=== PATIENT | male | born 1945 | race Caucasian/White ===

== ENCOUNTER 2017-01-22 00:04 | Inpatient (IN) | payer MEDICARE ==
[~2017-01-22] VITALS: Ht 172.7 cm; Wt 88.7 kg
[~2017-01-22 00:04] MED LIST: ALPR2TAB2 PO; ASPI-496 PO; AZIT250T PO; CEFD300C2 PO; FLUT1DIS IH; LORA10CA PO; PANT40TA5 PO; SIMV20TA3 PO
[2017-01-22] MEDS ORDERED: MORPHINE SULFATE 4 MG/ML, 1ML IVPush PRN (00:30)
[2017-01-22] MEDS ORDERED: SODIUM CHLORIDE 0.9% 1,000ML IVBOLUS ONE (00:30)
[2017-01-22] MEDS ORDERED: ONDANSETRON 2MG/ML, 2ML IVPush ONE (00:30)
[2017-01-22] MEDS ORDERED: SODIUM CHLORIDE FLUSH 10ML SYR IVF ONE (00:30)
[2017-01-22 00:48] LABS: HEMOGLOBIN 9.6 g/dL (13.7-18.0)
[2017-01-22 01:03] LABS: BLOOD UREA NITROGEN 30 mg/dL (7-18)
[2017-01-22 01:06] LABS: ASPARTATE AMINO TRANSFERASE 23 U/L (15-37)
[2017-01-22] MEDS ORDERED: OMNIPAQUE 350 MG/ML, 150 ML BOTTLE ONE (01:14)
[2017-01-22] MEDS ORDERED: MORPHINE SULFATE 4 MG/ML, 1ML ONE (01:28)
[2017-01-22] MEDS ORDERED: ONDANSETRON 2MG/ML, 2ML ONE (01:28)
[2017-01-22] MEDS ORDERED: SODIUM CHLORIDE 0.9% 1,000 ML IV ONE (01:35)
[2017-01-22] MEDS ORDERED: PROMETHAZINE 25 MG/ML, 1ML IM ONE (02:00)
[2017-01-22] MEDS ORDERED: OMNIPAQUE 350 MG/ML, 100ML BOTTLE ONE (02:16)
[2017-01-22] MEDS ORDERED: ONDANSETRON 2MG/ML, 2ML IVP PRN (02:30)
[2017-01-22] MEDS ORDERED: PROMETHAZINE 25 MG/ML, 1ML IM PRN (02:30)
[2017-01-22] MEDS: HYDROmorphone 1 MG/ML, 1ML IV PRN ×4 (03:35→21:36)
[2017-01-22] MEDS: ENOXAPARIN 40 MG/0.4 ML SQ SCH (04:14)
[2017-01-22] MEDS: D5%-0.45NACL+KCL 20MEQ 1,000 ML IV SCH ×2 (04:14→17:04)
[2017-01-22 07:49] VITALS: BP 134/96
[2017-01-22] MEDS: BISACODYL 10 MG SUPP PR SCH (08:23)
[2017-01-22 08:39] VITALS: BP 113/68
[2017-01-22 13:13] VITALS: BP 131/95
[2017-01-22] MEDS: METOCLOPRAMIDE 5 MG/ML, 2ML IVPush SCH ×2 (15:41→21:36)
[2017-01-22 20:00] VITALS: BP 102/65
[2017-01-23 02:25] VITALS: BP 91/48
[2017-01-23] MEDS: ENOXAPARIN 40 MG/0.4 ML SQ SCH (03:28)
[2017-01-23] MEDS: D5%-0.45NACL+KCL 20MEQ 1,000 ML IV SCH ×2 (03:28→20:24)
[2017-01-23 05:49] LABS: HEMOGLOBIN 9.2 g/dL (13.7-18.0)
[2017-01-23 05:54] LABS: BLOOD UREA NITROGEN 20 mg/dL (7-18)
[2017-01-23 06:05] VITALS: BP 136/93
[2017-01-23] MEDS: BISACODYL 10 MG SUPP PR SCH (08:44)
[2017-01-23] MEDS: METOCLOPRAMIDE 5 MG/ML, 2ML IVPush SCH ×3 (08:44→23:11)
[2017-01-23] MEDS ORDERED: FAMOTIDINE 20 MG TABLET PO PRN (09:30)
[2017-01-23] MEDS: SENNA/DOCUSATE TABLET PO SCH (12:59)
[2017-01-23 13:35] VITALS: BP 101/63
[2017-01-23 20:46] VITALS: BP 102/67
[2017-01-24 02:12] VITALS: BP_SYST 87; BP_SYST 97; BP_DIAS 50; BP_DIAS 58
[2017-01-24] MEDS ORDERED: D5%-0.45NACL+KCL 20MEQ 1,000 ML IV SCH (02:18)
[2017-01-24] MEDS: ENOXAPARIN 40 MG/0.4 ML SQ SCH (03:53)
[2017-01-24] MEDS: D5%-0.45NACL+KCL 20MEQ 1,000 ML IV SCH (06:46)
[2017-01-24 07:19] VITALS: BP 112/70
[2017-01-24] MEDS: BISACODYL 10 MG SUPP PR SCH (09:00)
[2017-01-24] MEDS: SENNA/DOCUSATE TABLET PO SCH (09:00)
[2017-01-24] MEDS: METOCLOPRAMIDE 5 MG/ML, 2ML IVPush SCH (09:06)
[2017-01-24 10:18] LABS: BLOOD UREA NITROGEN 16 mg/dL (7-18)
[2017-01-24 10:54] LABS: HEMOGLOBIN 9.4 g/dL (13.7-18.0)
[2017-01-24] MEDS ORDERED: SENN1TAB7 PO (12:11)
[2017-01-24] MEDS ORDERED: BISA10SU65 PR (12:11)
[2017-01-24 12:31] VITALS: BP 126/87
== END 2017-01-24 12:35 | disposition home or self-care (01) | DRG 389 ==
LOC: ED 01:30 → SUATTDRO 01:46 → EDIP 02:18 → 4NOR 03:21
DX: K56.60 Unspecified intestinal obstruction (principal); E87.1 Hypo-osmolality and hyponatremia; R18.8 Other ascites; J98.11 Atelectasis; E86.0 Dehydration; D64.9 Anemia, unspecified; D72.829 Elevated white blood cell count, unspecified; J47.9 Bronchiectasis, uncomplicated; K21.9 Gastro-esophageal reflux disease without esophagitis; R13.10 Dysphagia, unspecified; K56.7 Ileus, unspecified; Z93.1 Gastrostomy status; Z82.3 Family history of stroke; Z87.891 Personal history of nicotine dependence; Z85.810 Personal history of malignant neoplasm of tongue; Z88.5 Allergy status to narcotic agent; Z87.01 Personal history of pneumonia (recurrent); J38.00 Paralysis of vocal cords and larynx, unspecified
CPT/HCPCS: 36415; 74022; 74177; 74250; 80048; 80053; 81003; 83690; 83735; 84100; 85025; 96361; 96374; 96375; J1170; J1650; J2405; J2550; Q9967; J2765; J3480; J7030